=== PATIENT | male | born 1990 | race Caucasian/White ===

== ENCOUNTER 2024-07-23 13:28 | Outpatient (CLI) | payer BC ==
[2024-07-23] MEDS ORDERED: Iopamidol 300 61% 100 ML VIAL FS ONE (13:32)
== END 2024-07-23 13:29 | disposition home or self-care (01) ==
LOC: CSHCT 13:28
PROVIDERS: ATTEND Family Medicine
DX: R10.32 Left lower quadrant pain (principal); N13.30 Unspecified hydronephrosis
CPT/HCPCS: 74177; Q9967